=== PATIENT | male | born 1960 | race Caucasian/White ===

== ENCOUNTER → 2016-08-24 | Outpatient (REF) ==
[~2016-08-24] MED LIST: FERR325T3 PO; FOLI5INJ2 SC; GABA600T PO; PROC10TA PO; VITA200016 PO
--- NOTE | 2016-08-25 01:55 | REP ---
Clinical: Pain and disability. Technique: AP, lateral, coned-down views of the lumbosacral spine. Comparison: 04/06/2016. Findings: Advanced and relatively stable multilevel degenerative disc osteophyte complexes are again noted. Findings include osteophytosis, endplate sclerosis/irregularity with disc space narrowing as well as hypertrophic facet changes. Stable retrolisthesis at the L2-3 level of approximately 7 mm is again noted. No acute fracture / compression injury or subluxation. Impression: Advanced multilevel degenerative changes similar to prior examination. No acute fracture / compression injury or subluxation. Signed by Tavares Rosenberg MD 08/25/2016 01:46 A
--- NOTE | 2016-08-25 01:57 | REP ---
Clinical: Pain and disability. Technique: AP view of the pelvis with neutral and frog lateral views of the right and left hip. Findings: Mild symmetric changes to the bilateral hips includes increase sclerosis to the acetabular roof with subtle superior spurring and minimal superior joint space narrowing. No significant periarticular calcifications are appreciated. No evidence for acute or healed fracture. Impression: Mild symmetric arthritic degenerative changes. Signed by Tavares Rosenberg MD 08/25/2016 01:48 A
== END ==
LOC: M SMT 13:59
PROVIDERS: ATTEND Internal Medicine
DX: Z02.71 Encounter for disability determination (principal)

== ENCOUNTER 2017-02-28 22:40 | Emergency (ER) | payer MEDICAID, SELFPAY ==
[~2017-02-28] VITALS: Ht 185.4 cm; Wt 94.0 kg
[2017-02-28 22:40] VITALS: BP 141/87
[2017-02-28] MEDS ORDERED: CYCL5TAB PO (22:48)
[2017-03-01] MEDS ORDERED: NORCOTAB PO
[2017-03-01] MEDS ORDERED: NORCO 5/325MG TABLET (BULK FOR ED) PO ONE
--- NOTE | 2017-03-01 01:24 | REP ---
Clinical: Pain. Technique: AP, lateral, bilateral oblique and sunrise views of the left knee. Findings: Anterior and prepatellar soft tissue swelling is appreciated. Small suprapatellar effusion cannot be excluded. The patella has a bipartite appearance which less likely reflects subacute fracture, but should be correlated clinically. Increase sclerosis to the tibial plateau suggests age-related changes. No osteophytosis or further overt arthritic degenerative changes are appreciated. Impression: Anterior/prepatellar soft tissue swelling. Bipartite patella versus nonacute fracture requires correlation. Signed by Tavares Rosenberg MD 03/01/2017 01:15 A
== END 2017-03-01 00:19 | disposition home or self-care (01) ==
LOC: M ED 22:40
DX: S82.002A Unspecified fracture of left patella, initial encounter for closed fracture (principal); W01.198A Fall on same level from slipping, tripping and stumbling with subsequent striking against other object, initial encounter; Y92.830 Public park as the place of occurrence of the external cause; Y93.89 Activity, other specified; Y99.8 Other external cause status; F17.210 Nicotine dependence, cigarettes, uncomplicated; Z91.041 Radiographic dye allergy status; Z79.899 Other long term (current) drug therapy

== ENCOUNTER → 2018-07-26 | Outpatient (CLI) | payer MEDICARE, MEDICAID ==
[~2018-07-26] MED LIST changes: +CYCL5TAB PO; -GABA600T PO; +GABA600T4 PO; +NORCOTAB PO; -PROC10TA PO; +PROC10TA4 PO
[2018-07-26 13:00] LABS: APPEARANCE, URINE CLEAR (CLEAR); BACTERIA, URINE AUTO NEGATIVE (NEGATIVE); BILIRUBIN, URINE AUTO NEGATIVE (NEGATIVE); BLOOD, URINE BLOOD NEGATIVE (NEGATIVE); COLOR, URINE YELLOW (YELLOW); GLUCOSE, URINE (UA) AUTO NEGATIVE (NEGATIVE); KETONE, URINE AUTO NEGATIVE (NEGATIVE); LEUKOCYTE ESTERASE, URINE AUTO NEGATIVE (NEGATIVE); NITRITE, URINE AUTO NEGATIVE (NEGATIVE); PROTEIN, URINE AUTO NEGATIVE (NEGATIVE); RBC, URINE AUTO 2 /HPF (0-3); SPECIFIC GRAVITY URINE AUTO 1.016 (1.002-1.035); SQUAMOUS EPITHELIAL CELL UR AU 0 /HPF (0-6); UROBILINOGEN, URINE AUTO 0.2 mg/dL (0.0-2.0); WBC, URINE AUTO 0 /HPF (0-3)
[2018-07-26 13:02] LABS: BASO # 0.1 10^3/uL (0.0-0.2); BASO % 0.7 % (0.0-1.0); EOS # 0.2 10^3/uL (0.0-0.50); EOS % 2.6 % (0.0-3.0); HEMATOCRIT 48.9 % (42.0-52.0); HEMOGLOBIN 16.5 g/dl (13.5-17.5); LYMPH # 2.9 10^3/uL (1.5-4.5); LYMPH % 39.8 % (24.0-44.0); MEAN CORPUSCULAR HEMOGLOBIN 31.3 pg (27.0-33.0); MEAN CORPUSCULAR HGB CONC 33.7 g/dl (32.0-36.5); MEAN CORPUSCULAR VOLUME 92.6 fl (80.0-96.0); MONO # 0.8 10^3/uL (0.0-0.8); MONO % 10.7 % (0.0-5.0); NEUTROPHILS # 3.3 10^3/uL (1.8-7.7); NEUTROPHILS % 45.8 % (36.0-66.0); PLATELET COUNT, AUTOMATED 178 10^3/uL (150-450); RED BLOOD COUNT 5.28 10^6/uL (4.30-6.10); WHITE BLOOD COUNT 7.3 10^3/uL (4.0-10.0)
[2018-07-26 13:31] LABS: ALBUMIN 3.5 GM/DL (3.2-5.2); ALT/SGPT 30 U/L (12-78); BILIRUBIN,TOTAL 0.9 MG/DL (0.2-1.0); BLOOD UREA NITROGEN 19 MG/DL (7-18); CALCIUM LEVEL 8.6 MG/DL (8.5-10.1); CARBON DIOXIDE LEVEL 25 MEQ/L (21-32); CHLORIDE LEVEL 107 MEQ/L (98-107); CHOLESTEROL LEVEL 231 MG/DL (<200); CHOLESTEROL RISK RATIO 6.416 (<5); CREATININE FOR GFR 1.09 MG/DL (0.70-1.30); FERRITIN 198 NG/ML (26-388); GLOMERULAR FILTRATION RATE > 60.0 (>56); GLUCOSE, FASTING 90 MG/DL (70-100); HDL CHOLESTEROL 36 MG/DL (>40); IRON (FE) 129 UG/DL (65-175); LDL CHOLESTEROL 160 MG/DL (<100); NON-HDL-C 195 MG/DL; PERCENT SATURATION 53.8 % (19.7-50.0); POTASSIUM SERUM 4.5 MEQ/L (3.5-5.1); SODIUM LEVEL 141 MEQ/L (136-145); TOTAL 25(OH) VITAMIN D 89.3 NG/ML (30.0-100.0); TOTAL IRON BINDING CAPACITY 240 UG/DL (250-450); TOTAL PROTEIN 6.7 GM/DL (6.4-8.2); TRIGLYCERIDES LEVEL 176 MG/DL (<150)
[2018-07-26 13:32] LABS: VITAMIN B12 LEVEL 500 PG/ML (247-911)
[2018-07-26 14:09] LABS: FOLATE 12.9 NG/ML (>5.4)
[2018-08-03 14:14] LABS: HLA-B27 Positive (.); PSA TOTAL 1.4 ng/mL (0.0-4.0)
== END ==
LOC: M WUC 09:18
PROVIDERS: ATTEND Family Medicine
DX: Q07.00 Arnold-Chiari syndrome without spina bifida or hydrocephalus (principal); E55.9 Vitamin D deficiency, unspecified; D52.9 Folate deficiency anemia, unspecified; F17.210 Nicotine dependence, cigarettes, uncomplicated; M51.36 Other intervertebral disc degeneration, lumbar region

== ENCOUNTER → 2018-10-23 | Outpatient (CLI) | payer MEDICARE, MEDICAID ==
[2018-10-23 17:09] LABS: ALBUMIN 3.8 GM/DL (3.2-5.2); ALT/SGPT 41 U/L (12-78); BILIRUBIN,TOTAL 0.6 MG/DL (0.2-1.0); BLOOD UREA NITROGEN 24 MG/DL (7-18); CALCIUM LEVEL 8.4 MG/DL (8.5-10.1); CARBON DIOXIDE LEVEL 28 MEQ/L (21-32); CHLORIDE LEVEL 107 MEQ/L (98-107); CHOLESTEROL LEVEL 190 MG/DL (<200); CHOLESTEROL RISK RATIO 4.318 (<5); CREATININE FOR GFR 0.92 MG/DL (0.70-1.30); GLOMERULAR FILTRATION RATE > 60.0 (>56); GLUCOSE, FASTING 96 MG/DL (70-100); HDL CHOLESTEROL 44 MG/DL (>40); IRON (FE) 81 UG/DL (65-175); LDL CHOLESTEROL 127 MG/DL (<100); NON-HDL-C 146 MG/DL; PERCENT SATURATION 34.6 % (19.7-50.0); POTASSIUM SERUM 4.3 MEQ/L (3.5-5.1); SODIUM LEVEL 140 MEQ/L (136-145); TOTAL IRON BINDING CAPACITY 234 UG/DL (250-450); TOTAL PROTEIN 6.9 GM/DL (6.4-8.2); TRIGLYCERIDES LEVEL 95 MG/DL (<150)
[2018-10-23 17:13] LABS: TOTAL 25(OH) VITAMIN D 81.4 NG/ML (30.0-100.0)
== END ==
LOC: M WUC 10:40
PROVIDERS: ATTEND Family Medicine
DX: E55.9 Vitamin D deficiency, unspecified (principal); E78.5 Hyperlipidemia, unspecified; D64.9 Anemia, unspecified

== ENCOUNTER → 2018-11-08 | Outpatient (REF) | payer MEDICARE, MEDICAID ==
[~2018-11-08] MED LIST changes: +HYDR-3715 PO; -NORCOTAB PO
[2018-11-08 18:21] LABS: HEMATOCRIT 48.5 % (42.0-52.0); HEMOGLOBIN 16.6 g/dl (13.5-17.5); MEAN CORPUSCULAR HEMOGLOBIN 30.7 pg (27.0-33.0); MEAN CORPUSCULAR HGB CONC 34.2 g/dl (32.0-36.5); MEAN CORPUSCULAR VOLUME 89.8 fl (80.0-96.0); PLATELET COUNT, AUTOMATED 215 10^3/uL (150-450)
[2018-11-08 18:31] LABS: ALBUMIN 3.9 GM/DL (3.2-5.2); ALT/SGPT 48 U/L (12-78); BILIRUBIN,DIRECT < 0.1 MG/DL (0.0-0.2); BILIRUBIN,TOTAL 0.5 MG/DL (0.2-1.0); BLOOD UREA NITROGEN 24 MG/DL (7-18); CALCIUM LEVEL 8.6 MG/DL (8.5-10.1); CARBON DIOXIDE LEVEL 24 MEQ/L (21-32); CHLORIDE LEVEL 109 MEQ/L (98-107); GLOMERULAR FILTRATION RATE > 60.0 (>56); GLUCOSE, FASTING 86 MG/DL (70-100); PHOSPHORUS LEVEL 2.6 MG/DL (2.5-4.9); POTASSIUM SERUM 4.3 MEQ/L (3.5-5.1); SODIUM LEVEL 140 MEQ/L (136-145); TOTAL PROTEIN 7.1 GM/DL (6.4-8.2)
== END ==
LOC: M LABDRAW1 17:37 → M LAB REF 17:37
PROVIDERS: ATTEND Podiatrist Foot & Ankle Surgery
DX: B35.1 Tinea unguium (principal); Z79.899 Other long term (current) drug therapy

== ENCOUNTER → 2018-12-18 | Outpatient (CLI) | payer MEDICARE ==
[~2018-12-18] MED LIST changes: +ASPI81TA85 PO; +ATOR40TA75 PO; +FOLI1TAB11 PO; +GABA800T4 PO; +TERB250T12 PO; +VITA50005 PO; +ZONI50CA3 PO
[2018-12-18 16:40] LABS: HEMATOCRIT 47.1 % (42.0-52.0); HEMOGLOBIN 16.3 g/dl (13.5-17.5); MEAN CORPUSCULAR HEMOGLOBIN 30.8 pg (27.0-33.0); MEAN CORPUSCULAR HGB CONC 34.6 g/dl (32.0-36.5); PLATELET COUNT, AUTOMATED 172 10^3/uL (150-450); RED BLOOD COUNT 5.29 10^6/uL (4.30-6.10); WHITE BLOOD COUNT 6.6 10^3/uL (4.0-10.0)
[2018-12-18 16:53] LABS: ALBUMIN 4.1 GM/DL (3.2-5.2); ALT/SGPT 55 U/L (12-78); BILIRUBIN,DIRECT 0.1 MG/DL (0.0-0.2); BILIRUBIN,TOTAL 0.6 MG/DL (0.2-1.0); BLOOD UREA NITROGEN 25 MG/DL (7-18); CALCIUM LEVEL 9.1 MG/DL (8.5-10.1); CARBON DIOXIDE LEVEL 27 MEQ/L (21-32); CHLORIDE LEVEL 110 MEQ/L (98-107); CREATININE FOR GFR 1.04 MG/DL (0.70-1.30); GLOMERULAR FILTRATION RATE > 60.0 (>56); GLUCOSE, FASTING 95 MG/DL (70-100); PHOSPHORUS LEVEL 2.3 MG/DL (2.5-4.9); POTASSIUM SERUM 4.3 MEQ/L (3.5-5.1); SODIUM LEVEL 141 MEQ/L (136-145); TOTAL PROTEIN 7.3 GM/DL (6.4-8.2)
== END ==
LOC: M WUC 13:38
PROVIDERS: ATTEND Podiatrist Foot & Ankle Surgery
DX: B35.1 Tinea unguium (principal); Z79.899 Other long term (current) drug therapy

== ENCOUNTER 2018-12-23 13:11 | Observation (INO) | payer MEDICARE ==
[~2018-12-23] VITALS: Ht 188 cm; Wt 93.7 kg
[~2018-12-23 13:11] MED LIST changes: -ASPI81TA85 PO; -ATOR40TA75 PO; -FOLI1TAB11 PO; -GABA800T4 PO; -TERB250T12 PO; -VITA50005 PO; -ZONI50CA3 PO
[2018-12-23] MEDS ORDERED: ZONI50CA3 PO (13:18)
[2018-12-23] MEDS ORDERED: ATOR40TA75 PO (13:18)
[2018-12-23] MEDS ORDERED: FOLI1TAB11 PO (13:18)
[2018-12-23] MEDS ORDERED: VITA50005 PO (13:18)
[2018-12-23] MEDS ORDERED: TERB250T12 PO (13:18)
[2018-12-23] MEDS ORDERED: NS 1,000 ML IV ONE (14:00)
[2018-12-23 14:12] LABS: BASO # 0.1 10^3/uL (0.0-0.2); EOS # 0.2 10^3/uL (0.0-0.50); EOS % 2.8 % (0.0-3.0); HEMATOCRIT 46.9 % (42.0-52.0); HEMOGLOBIN 16.1 g/dl (13.5-17.5); LYMPH # 1.7 10^3/uL (1.5-4.5); LYMPH % 28.6 % (24.0-44.0); MEAN CORPUSCULAR HEMOGLOBIN 31.1 pg (27.0-33.0); MEAN CORPUSCULAR HGB CONC 34.3 g/dl (32.0-36.5); MEAN CORPUSCULAR VOLUME 90.7 fl (80.0-96.0); MONO # 0.5 10^3/uL (0.0-0.8); MONO % 8.9 % (0.0-5.0); NEUTROPHILS # 3.5 10^3/uL (1.8-7.7); NEUTROPHILS % 58.5 % (36.0-66.0); PLATELET COUNT, AUTOMATED 169 10^3/uL (150-450); RED BLOOD COUNT 5.17 10^6/uL (4.30-6.10)
[2018-12-23 14:37] LABS: ALBUMIN 3.9 GM/DL (3.2-5.2); ALT/SGPT 52 U/L (12-78); BILIRUBIN,TOTAL 0.7 MG/DL (0.2-1.0); BLOOD UREA NITROGEN 18 MG/DL (7-18); CALCIUM LEVEL 8.6 MG/DL (8.5-10.1); CARBON DIOXIDE LEVEL 24 MEQ/L (21-32); CHLORIDE LEVEL 112 MEQ/L (98-107); CREATININE FOR GFR 1.11 MG/DL (0.70-1.30); GLOMERULAR FILTRATION RATE > 60.0 (>56); GLUCOSE, FASTING 96 MG/DL (70-100); POTASSIUM SERUM 4.2 MEQ/L (3.5-5.1); SODIUM LEVEL 143 MEQ/L (136-145); TOTAL PROTEIN 7.5 GM/DL (6.4-8.2)
[2018-12-23 14:51] LABS: D-DIMER QUANT 2059.31 ng/ml (<500)
[2018-12-23] MEDS ORDERED: guaiFENesin DM LIQ 10ML UD PO PRN (16:15)
--- NOTE | 2018-12-23 16:28 | HPEPDOC ---
[facility] Medical History & Physical History and Physical DATE OF ADMISSION 12/23/2018 PCP Chandan in [facility] VERIFICATION MANAGER: Dr. Negron NEUROLOGIST: Dr. Reis CHIEF COMPLAINT: Coughing up blood HISTORY OF PRESENT ILLNESS: Patient is a 58-year-old man who presents with a 2- 1/2 week history of significant cough or last 2 days he has noted progressively increasing hemoptysis approximately half teaspoon per episode. It happens after a large coughing fit and intermittently he has never experienced this before. He denies any other bleeding dark tarry stools easy bruising. He tells me that he has had a significant runny nose for the past week as well. Clear. He tells me that his grandchildren live with them have been sick and they've been having a runny nose and cough for the last 2 weeks also he felt he had the same infection has been. He is a long-time smoker of greater than 30 pack years. He denies any new changes in medications other than starting terbinafine one month ago for onychomycosis. The patient denies fevers chills or otherwise feeling unwell, he denies sore throat he denies night sweats weight loss or changes in appetite Otherwise patient denies hair loss, he has chronic headache, denies visual changes, chest pain, shortness of breath, nausea, vomiting, diarrhea, abdominal pain, muscle aches, worsening arthritis, change in mood PAST MEDICAL HISTORY: 1. Budd-Chiari with chronic headache. 2. Dyslipidemia 3. Onychomycosis. 4. Folic acid and vitamin D deficiency HOME MEDICATIONS: Please see below. ALLERGIES: Please see below PAST SURGICAL HISTORY: 1. Colonoscopy. 2. Left ulnar nerve release.. SOCIAL HISTORY: Lives with: and grandchildren, Employment:. She worked in a [employer] has been on unable to work for several years now, Tobacco use: Active smoker greater than 30 pack years. ETOH: Does not drink cannot remember his last drink, Illicit drug use: Denies , Tattoos done unprofessionally: Denies. IV drug use: Denies CODE STATUS: Full code FAMILY HISTORY:Reviewed and noncontributory REVIEW OF SYSTEMS: 10 systems reviewed and negative other than HPI PHYSICAL EXAMINATION: VITAL SIGNS: Temperature 98.8, pulse 80, respiratory rate 18, blood pressure 136/84, pulse oximetry 95% on room air. GENERAL: Pleasant man accompanied by his sitting on the stretcher sitting up in bed awake alert oriented speaking in complete sentences no acute distress. He does smoke tobacco has numerous tattoos HEENT: Moist mucous membranes no elevation and CVP, no visible perforations of nasal septum, no blood visualized in the oral cavity CARDIOVASCULAR: S1 S2 regular no additional heart sounds appreciated. RESPIRATORY: Clear to auscultation bilaterally. ABDOMINAL: Bowel sounds present abdomen soft and nontender EXTREMITIES: No clubbing cyanosis or edema NEUROLOGICAL: Spontaneously moves all 4 extremities cranial 2 through 12 grossly intact no gross focal deficits appreciated PSYCHOLOGICAL: Appropriate LABORATORY DATA: See below. MICROBIOLOGY: Please see below. IMAGING: CT chest: Report pending Lower extremity duplex: Report pending ASSESSMENT & PLAN: 58-year-old man with hemoptysis . PROBLEMS: 1.Non-massive hemoptysis: The etiology is not clear, he does have positive sick contacts infection is certainly possible that sound like Serratia he does not appear to be grossly septic he is not tachycardic she is not febrile symptomatic complaints are minimal. I will check a [employer] PCR panel and await the report of his CT chest without contrast. He does have a significant tobacco history and chronic bronchitis and malignancy are currently on the differential as well. He doesn't have a significantly elevated d-dimer and as such there is concern for pulmonary embolism, as such I will to the observation status to complete a VQ scan tomorrow. However he is not hypoxic is not tachycardic and as such I will hold off on any anticoagulation until we have confirmed the diagnosis as this may be ruptured small blood vessel secondary to aggressive coughing for the last 2 weeks related to some other process. Should his work to be negative and symptoms persist could consider outpatient bronchoscopy. We'll check a UA. 2.Dyslipidemia: Continue with atorvastatin 3. Onychomycosis: Continue with terbinafine 4. Tobacco abuse: Cessation counseling provided 5. Vitamin deficiencies: Continue with vitamin D2 and folic acid supplementation DVT PROPHYLAXIS:Sequentials and teds encourage ambulation DISPOSITION: Admitted to observation status in the medical surgical floor Vital Signs Vital Signs Date Time Temp Pulse Resp B/P (MAP) Pulse Ox O2 Delivery O2 Flow Rate FiO2 12/23/18 16:00 98.0 66 18 128/92 (104) 98 Room Air Laboratory Data Labs 24H Laboratory Tests 2 12/23/18 13:53: Immature Granulocyte % (Auto) 0.2, White Blood Count 6.0, Red Blood Count 5.17, Hemoglobin 16.1, Hematocrit 46.9, Mean Corpuscular Volume 90.7, Mean Corpuscular Hemoglobin 31.1, Mean Corpuscular Hemoglobin Concent 34.3, Red Cell Distribution Width 13.4, Platelet Count 169, Neutrophils (%) (Auto) 58.5, Lymphocytes (%) (Auto) 28.6, Monocytes (%) (Auto) 8.9H, Eosinophils (%) (Auto) 2.8, Basophils (%) (Auto) 1.0, Neutrophils # (Auto) 3.5, Lymphocytes # (Auto) 1.7, Monocytes # (Auto) 0.5, Eosinophils # (Auto) 0.2, Basophils # (Auto) 0.1, Nucleated Red Blood Cells % (auto) 0.0, D-Dimer, Quantitative 2059.31H, Anion Gap 7L, Glomerular Filtration Rate > 60.0, Blood Urea Nitrogen 18, Creatinine 1.11, Sodium Level 143, Potassium Level 4.2, Chloride Level 112H, Carbon Dioxide Level 24, Calcium Level 8.6, Aspartate Amino Transf (AST/SGOT) 28, Alanine Aminotransferase (ALT/SGPT) 52, Alkaline Phosphatase 126H, Total Bilirubin 0.7, Total Protein 7.5, Albumin 3.9, Albumin/Globulin Ratio 1.08 CBC/BMP Laboratory Tests 12/23/18 13:53 Red Blood Count 5.17, Mean Corpuscular Volume 90.7, Mean Corpuscular Hemoglobin 31.1, Mean Corpuscular Hemoglobin Concent 34.3, Red Cell Distribution Width 13. 4, Neutrophils (%) (Auto) 58.5, Lymphocytes (%) (Auto) 28.6, Monocytes (%) (Auto) 8.9 H, Eosinophils (%) (Auto) 2.8, Basophils (%) (Auto) 1.0, Neutrophils # (Auto) 3.5, Lymphocytes # (Auto) 1.7, Monocytes # (Auto) 0.5, Eosinophils # (Auto) 0.2, Basophils # (Auto) 0.1, Calcium Level 8.6, Aspartate Amino Transf (AST/SGOT) 28, Alanine Aminotransferase (ALT/SGPT) 52, Alkaline Phosphatase 126 H, Total Bilirubin 0.7, Total Protein 7.5, Albumin 3.9 Home Medications Scheduled Atorvastatin Calcium (Atorvastatin Calcium) 40 Mg Tablet, QHS Ergocalciferol (Vitamin D2) (Vitamin D2) 50,000 Unit Capsule, 50,000 UNIT PO MTHLY Folic Acid (Folic Acid) 1 Mg Tablet, 1 TAB PO DAILY Gabapentin (Gabapentin) 600 Mg Tab, 600 MG PO TID Terbinafine HCl (Terbinafine HCl) 250 Mg Tablet, DAILY Zonisamide (Zonisamide) 50 Mg Capsule, BID Scheduled PRN Cyclobenzaprine HCl (Cyclobenzaprine HCl) 5 Mg Tab, 5 MG PO for BACK PAIN Hydrocodone/Acetaminophen (Hydrocodone-Acetamin 5-325 mg) 1 Tab Tab, 1 TAB PO Q6H PRN for PAIN Miscellaneous Medications Ferrous Sulfate (Ferrous Sulfate) 325 Mg Tab, 325 MG PO Allergies Coded Allergies: Contrast Media (Verified Allergy, Unknown, 07/13/16) A-FIB/CHADSVASC A-FIB History Current/History of A-Fib/PAF?: No LEXX GREGG MD December 23, 2018 16:28
[2018-12-23] MEDS ORDERED: ASPI81TA85 PO (16:36)
[2018-12-23] MEDS ORDERED: GABA800T4 PO (16:37)
[2018-12-23 17:30] VITALS: BP 136/74
[2018-12-23] MEDS: ZONISAMIDE 50 MG CAP (ZONEGRAN) PO SCH (20:20)
[2018-12-23 20:29] LABS: NT-PRO BNP 14 PG/ML (<125); TROPONIN I < 0.02 NG/ML (< 0.10)
[2018-12-23 20:47] LABS: INR 0.94; PROTHROMBIN TIME 12.7 SECONDS (12.1-14.4)
[2018-12-23 22:00] VITALS: BP 138/81
[2018-12-24 06:00] VITALS: BP 122/80
--- NOTE | 2018-12-24 07:10 | REP ---
REASON: Hemoptysis and dyspnea. Patient has intravenous contrast allergy as per history. The lack of intravenous contrast decreases the sensitivity of the exam. The mediastinum and pulmonary teresa are within normal limits although seen in a limited fashion. There are no pleural or pericardial effusion. The imaged upper abdomen and imaged osseous structures are within normal limits. Evaluation of the lung kincaid show emphysematous changes with small parenchymal bulla and tiny pleural blebs particularly in the apices. There is no evidence of a significant abnormal nodule, mass, or opacity. IMPRESSION: Chronic lung field changes as described above. Electronically Signed by Ji Quiros DO 12/24/2018 08:36 A
--- NOTE | 2018-12-24 07:13 | REP ---
REASON: Pain and swelling. TECHNIQUE: Multiple ultrasonographic images of the deep venous structures of the bilateral thighs were obtained from the common femoral vein to the popliteal vein along with Doppler interrogation and color flow Doppler images. FINDINGS: There is no abnormal echogenic material seen within any of the visualized deep venous structures that would suggest acute thrombosis. Coaptation is unremarkable throughout. Doppler interrogation shows an expected response to respiratory variability and augmentation. The color flow images show what appears to be a normal vascular pattern throughout. IMPRESSION: There is no ultrasonographic evidence of deep venous thrombosis involving any of the visualized deep venous structures of the bilateral thighs, as described above. Electronically Signed by Ji Quiros DO 12/24/2018 08:37 A
[2018-12-24 07:33] LABS: HEMATOCRIT 44.8 % (42.0-52.0); HEMOGLOBIN 15.1 g/dl (13.5-17.5); MEAN CORPUSCULAR HEMOGLOBIN 30.8 pg (27.0-33.0); MEAN CORPUSCULAR HGB CONC 33.7 g/dl (32.0-36.5); MEAN CORPUSCULAR VOLUME 91.4 fl (80.0-96.0); PLATELET COUNT, AUTOMATED 168 10^3/uL (150-450); WHITE BLOOD COUNT 6.1 10^3/uL (4.0-10.0)
[2018-12-24 07:55] LABS: BLOOD UREA NITROGEN 15 MG/DL (7-18); CALCIUM LEVEL 8.9 MG/DL (8.5-10.1); CARBON DIOXIDE LEVEL 24 MEQ/L (21-32); CHLORIDE LEVEL 111 MEQ/L (98-107); GLOMERULAR FILTRATION RATE > 60.0 (>56); GLUCOSE, FASTING 113 MG/DL (70-100); POTASSIUM SERUM 3.9 MEQ/L (3.5-5.1); SODIUM LEVEL 141 MEQ/L (136-145)
[2018-12-24] MEDS: ZONISAMIDE 50 MG CAP (ZONEGRAN) PO SCH (08:21)
[2018-12-24 10:06] LABS: APPEARANCE, URINE CLEAR (CLEAR); BACTERIA, URINE AUTO NEGATIVE (NEGATIVE); BILIRUBIN, URINE AUTO NEGATIVE (NEGATIVE); BLOOD, URINE BLOOD NEGATIVE (NEGATIVE); COLOR, URINE YELLOW (YELLOW); GLUCOSE, URINE (UA) AUTO NEGATIVE (NEGATIVE); KETONE, URINE AUTO NEGATIVE (NEGATIVE); LEUKOCYTE ESTERASE, URINE AUTO NEGATIVE (NEGATIVE); NITRITE, URINE AUTO NEGATIVE (NEGATIVE); PROTEIN, URINE AUTO NEGATIVE (NEGATIVE); RBC, URINE AUTO 0 /HPF (0-3); SPECIFIC GRAVITY URINE AUTO 1.008 (1.002-1.035); UROBILINOGEN, URINE AUTO 0.2 mg/dL (0.0-2.0); WBC, URINE AUTO 0 /HPF (0-3)
[2018-12-24 10:07] LABS: MUCUS, URINE SMALL (NEGATIVE); SQUAMOUS EPITHELIAL CELL UR AU 0 /HPF (0-6)
[2018-12-24] MEDS ORDERED: SLF 3 ML SYR IV PRN (11:45)
[2018-12-24 14:00] VITALS: BP 121/82
[2018-12-24] MEDS ORDERED: SLF 3 ML SYR IV SCH (14:00)
--- NOTE | 2018-12-24 15:57 | REP ---
REASON: Dyspnea. COMPARISON: Multiple, latest 06/28/2016. FINDINGS: The superior mediastinal structures are midline. The cardiac silhouette is unremarkable in size, shape, and position. The diaphragmatic surfaces of the lungs are regular, and the costophrenic angles are clear. The pulmonary kincaid are clear. The imaged osseous structures are intact. IMPRESSION: There is no acute cardiopulmonary disease. No change from the prior exam. Electronically Signed by Ji Quiros DO 12/24/2018 04:38 P
--- NOTE | 2018-12-24 16:11 | REP ---
REASON FOR EXAM: Dyspnea on exertion. After the inhalation of 1 millicurie of Technetium 99M DTPA a ventilation lung study was performed. After the intravenous administration of 2.5 millicuries of Technetium 99 M MAA a profusion lung study was performed. There was no evidence of a ventilation profusion mismatch. The profusion study is within normal limits. IMPRESSION:No evidence of a pulmonary embolus. Electronically Signed by Ji Quiros DO 12/24/2018 04:38 P
--- NOTE | 2018-12-24 16:41 | DS.PDOC ---
Discharge Summary General Date of Admission December 23, 2018 at 15:59 Date of Discharge 12/24/18 Attending Physician: LEXX GREGG MD Discharge Summary PROCEDURES PERFORMED DURING STAY: [None]. ADMITTING DIAGNOSES: 1. Hemoptysis 2. Dyslipidemia 3. Onychomycosis 4. Tobacco Abuse DISCHARGE DIAGNOSES: 1. Hemoptysis 2. Dyslipidemia 3. Onychomycosis 4. Tobacco Abuse COMPLICATIONS/CHIEF COMPLAINT: Hemoptysis. HISTORY OF PRESENT ILLNESS: Patient is a 58 year old male with a past medical history significant for Budd-Chiari malformation with chronic headache, dislipidemia, and onychomycosis who presented to the [facility] ER with complaint of blood tinged sputum since Monday12/19/18. Patient had stated that he has been ill with a cough for at least the past 2 1/2 weeks. He stated that on Monday he had noticed blood and quantified it to approximately 1/2 teaspoon per episode . Patient has admitted to being a long time smoker and states he has been smoking 1 pack per day for at least the past 30 years. The patient had denied any other symptoms with exception to a chronic cough. He denied fevers, chills, chest pain, or shortness of breath. He denied ever having any previous episode of hemotpysis before this. The patient presented because he became worried of his symptoms. In the ER the patient was found to be normotensive. He was not tachycardiac. A D-dimer was ordered in the ER which resulted positive. The patient was planned to receive a CT angiogram however, he noted an allergy to contrast dye. The patient was then placed under observation until he cougld receive a V/Q scan HOSPITAL COURSE: During the patients hospital course he did not have any other episodes of hemoptysis. He received a Vascular ultrasound which was negative for DVT. He received a V/Q scan which was negative for pulmonary embolus. He received a chest X-ray which was negative for acute disease. The patients episode of hemoptysis was felt to be secondary to bronchitis related to his s moking. The patient was counseled on smoking cessation and instructed to follow- up with Pulmonary medicine regarding his hemoptysis DISCHARGE MEDICATIONS: Please see below. ALLERGIES: Please see below. PHYSICAL EXAMINATION ON DISCHARGE: VITAL SIGNS: Please see below. GENERAL: Awake, alert, and oriented. Appears in no acute distress. HEENT: Atraumatic, normocephalic. Eyes are nonicteric. Trachea is midline. Dentition is fair. NECK: No palpable cervical chain lymphadenopathy CARDIOVASCULAR EXAMINATION: Normal S1, S2. Regular rate and rhythm. No clicks, rubs, or murmurs. RESPIRATORY EXAMINATION: Clear vesicular breath sounds bilaterally. Increased expiratory phase. Symmetric chest rise. No use of accessory muscles ABDOMINAL EXAMINATION: Soft, nondistended. Nontender to palpation of all 4 quadrants. No rebound tenderness or guarding. Positive bowel sounds throughout EXTREMITIES: No edema. 2+ posterior tibial pulses bilaterally. 2+ radial pulses bilaterally SKIN: No rashes or lesions. No signs of bruising NEUROLOGICAL EXAMINATION: No focal neurological deficits PSYCHIATRIC EXAMINATION: Mood and affect appear appropriate LABORATORY DATA: Please see below. IMAGING: REASON: Pain and swelling. TECHNIQUE: Multiple ultrasonographic images of the deep venous structures of the bilateral thighs were obtained from the common femoral vein to the popliteal vein along with Doppler interrogation and color flow Doppler images. FINDINGS: There is no abnormal echogenic material seen within any of the visualized deep venous structures that would suggest acute thrombosis. Coaptation is unremarkable throughout. Doppler interrogation shows an expected response to respiratory variability and augmentation. The color flow images show what appears to be a normal vascular pattern throughout. IMPRESSION: There is no ultrasonographic evidence of deep venous thrombosis involving any of the visualized deep venous structures of the bilateral thighs, as described above. Electronically Signed by Ji Quiros DO 12/24/2018 08:37 A DD: Ji Quiros MD, DO 12/23/18 [id number] REASON: Hemoptysis and dyspnea. Patient has intravenous contrast allergy as per history. The lack of intravenous contrast decreases the sensitivity of the exam. The mediastinum and pulmonary teresa are within normal limits although seen in a limited fashion. There are no pleural or pericardial effusion. The imaged upper abdomen and imaged osseous structures are within normal limits. Evaluation of the lung kincaid show emphysematous changes with small parenchymal bulla and tiny pleural blebs particularly in the apices. There is no evidence of a significant abnormal nodule, mass, or opacity. IMPRESSION: Chronic lung field changes as described above. Electronically Signed by Ji Quiros DO 12/24/2018 08:36 A REASON FOR EXAM: Dyspnea on exertion. After the inhalation of 1 millicurie of Technetium 99M DTPA a ventilation lung study was performed. After the intravenous administration of 2.5 millicuries of Technetium 99 M MAA a profusion lung study was performed. There was no evidence of a ventilation profusion mismatch. The profusion study is within normal limits. IMPRESSION: No evidence of a pulmonary embolus. REASON: Dyspnea. COMPARISON: Multiple, latest 06/28/2016. FINDINGS: The superior mediastinal structures are midline. The cardiac silhouette is unremarkable in size, shape, and position. The diaphragmatic surfaces of the lungs are regular, and the costophrenic angles are clear. The pulmonary kincaid are clear. The imaged osseous structures are intact. IMPRESSION: There is no acute cardiopulmonary disease. No change from the prior exam. Unreviewed DD: Ji Quiros MD DO 12/24/18 1163 PROGNOSIS: GOOD ACTIVITY: [As tolerated]. DIET: As tolerated DISCHARGE PLAN: Patient is to be discharged home. He is to STOP smoking and using tobacco and nicotine products. He is to follow-up with his primary care provider in 2-4 weeks. He is to follow-up with Pulmonary Medicine for further evaluation of his hemoptysis. DISCHARGE CONDITION: [Stable]. TIME SPENT ON DISCHARGE: Greater than 30 minutes. Vital Signs/I&Os Vital Signs Date Time Temp Pulse Resp B/P (MAP) Pulse Ox O2 Delivery O2 Flow Rate FiO2 12/24/18 14:00 97.3 59 20 121/82 (95) 99 12/23/18 16:00 Room Air I&O- Last 24 Hours up to 6 AM 12/24/18 05:59 Intake Total 1600 ml Output Total 0 ml Balance 1600 ml Laboratory Data Labs 24H Laboratory Tests 2 12/24/18 07:06: Nucleated Red Blood Cells % (auto) 0.0, Anion Gap 6L, Glomerular Filtration Rate > 60.0, Blood Urea Nitrogen 15, Creatinine 1.10, Sodium Level 141, Potassium Level 3.9, Chloride Level 111H, Carbon Dioxide Level 24, Calcium Level 8.9 12/24/18 09:45: Urine Appearance CLEAR, Urine Color YELLOW, Urine pH 6.0, Urine Specific [place] 1.008, Urine Protein NEGATIVE, Urine Glucose (UA) NEGATIVE, Urine Ketones NEGATIVE, Urine Urobilinogen 0.2, Urine Bilirubin NEGATIVE, Urine Leukocyte Esterase NEGATIVE, Urine Blood NEGATIVE, Urine Nitrite NEGATIVE, Urine WBC (Auto) 0, Urine RBC (Auto) 0, Urine Hyaline Casts (Auto) 0, Urine Bacteria (Auto) NEGATIVE, Urine Squamous Epithelial Cells 0, Urine Mucus (Auto) SMALL, Urine Sperm (Auto) CBC/BMP Laboratory Tests 12/24/18 07:06 Red Blood Count 4.90, Mean Corpuscular Volume 91.4, Mean Corpuscular Hemoglobin 30.8, Mean Corpuscular Hemoglobin Concent 33.7, Red Cell Distribution Width 13.6, Calcium Level 8.9 Microbiology Microbiology 12/24/18 Respiratory Virus Panel (PCR) (DAT) - Final, Complete Discharge Medications Scheduled Aspirin (Aspir 81) 81 Mg Tablet.dr, 81 MG PO DAILY, (Reported) Atorvastatin Calcium (Atorvastatin Calcium) 40 Mg Tablet, 40 MG PO QHS, (Reported) Ergocalciferol (Vitamin D2) (Vitamin D2) 50,000 Unit Capsule, 50,000 UNIT PO QMONTH, (Reported) Ferrous Sulfate (Ferrous Sulfate) 325 Mg Tab, 325 MG PO Q2WK, (Reported) Folic Acid (Folic Acid) 1 Mg Tablet, 1 MG PO DAILY, (Reported) Terbinafine HCl (Terbinafine HCl) 250 Mg Tablet, 250 MG PO DAILY, (Reported) Zonisamide (Zonisamide) 50 Mg Capsule, 50 MG PO BID, (Reported) Scheduled PRN Gabapentin (Gabapentin) 800 Mg Tablet, 800 MG PO TID PRN for PAIN, (Reported) Allergies Coded Allergies: Contrast Media (Verified Allergy, Unknown, 07/13/16) GME ATTESTATION GME ATTESTATION My faculty preceptor for this patient encounter was physically present during the encounter and was fully available. All aspects of the patient interview, examination, medical decision making process, and medical care plan development were reviewed and approved by the faculty preceptor. The faculty preceptor is aware and concurs with the plan as stated in the body of this note and will attest to such by his/her cosignature. ATTENDING NOTE I saw and evaluated the patient. I agree with the findings and plan of care as documented in the resident's note. I spent 45 minutes coordinating this patient's discharge. SASHA BILL DO December 24, 2018 16:41 LEXX GREGG MD December 24, 2018 18:08
== END 2018-12-24 17:23 | disposition home or self-care (01) ==
LOC: M ED 13:11 → M ED INP 15:59 → M MSPAV 18:20
PROVIDERS: ADMIT Internal Medicine; ATTEND Internal Medicine
DX: R04.2 Hemoptysis (principal); E78.49 Other hyperlipidemia; B35.1 Tinea unguium; F17.210 Nicotine dependence, cigarettes, uncomplicated; I82.0 Budd-Chiari syndrome; R51 Headache; E55.9 Vitamin D deficiency, unspecified; D52.9 Folate deficiency anemia, unspecified; Z91.041 Radiographic dye allergy status; Z79.899 Other long term (current) drug therapy; Z79.82 Long term (current) use of aspirin
CPT/HCPCS: 36415; 71046; 71250; 78582; 80048; 80053; 81001; 83880; 84484; 85025; 85027; 85379; 85610; 87486; 87581; 87633; 87798; 93970; 96360; 99284; A9540; A9567; G0378

== ENCOUNTER → 2019-02-28 | Outpatient (CLI) | payer MEDICARE, MEDICAID ==
[~2019-02-28] MED LIST changes: +ASPI81TA85 PO; +ATOR40TA75 PO; +FOLI1TAB11 PO; +GABA800T4 PO; +TERB250T12 PO; +VITA50005 PO; +ZONI50CA3 PO
--- NOTE | 2019-03-01 08:29 | REP ---
Clinical: Pain. H L A B-27 positive serum markers. Technique: Neutral and frog lateral views of the right and left hip. Findings: Hip joints are symmetric and demonstrate mild degenerative changes including increase sclerosis along the acetabular roof with minimal joint space narrowing and very early marginal spurring. Impression: Mild symmetric degenerative change. Electronically Signed by Tavares Rosenberg MD 03/01/2019 08:20 A
--- NOTE | 2019-03-01 08:30 | REP ---
Clinical: H L A B-27 positive serum markers Technique: Four total views of the bilateral sacroiliac joints. Findings: The bilateral sacroiliac joints are symmetric and normal for age. The osseous structures are intact. Phleboliths noted in the pelvis. Impression: Normal age-appropriate sacroiliac joints. Electronically Signed by Tavares Rosenberg MD 03/01/2019 08:22 A
== END ==
LOC: M RAD 11:32
PROVIDERS: ATTEND Internal Medicine Rheumatology
DX: M16.0 Bilateral primary osteoarthritis of hip (principal); I87.8 Other specified disorders of veins; Z15.89 Genetic susceptibility to other disease
CPT/HCPCS: 72202; 73502; G0463

== ENCOUNTER → 2020-01-17 | Outpatient (CLI) | payer MEDICARE, MEDICAID ==
[~2020-01-17] MED LIST changes: +ZONI50CA11 PO; -ZONI50CA3 PO
[2020-01-17 08:23] LABS: BASO # 0.1 10^3/uL (0.0-0.2); EOS # 0.2 10^3/uL (0.0-0.5); EOS % 3.1 % (0.0-3.0); HEMATOCRIT 47.8 % (42.0-52.0); HEMOGLOBIN 16.6 g/dl (13.5-17.5); LYMPH # 2.1 10^3/uL (1.5-5.0); LYMPH % 29.7 % (24.0-44.0); MEAN CORPUSCULAR HEMOGLOBIN 31.7 pg (27.0-33.0); MEAN CORPUSCULAR HGB CONC 34.7 g/dl (32.0-36.5); MEAN CORPUSCULAR VOLUME 91.4 fl (80.0-96.0); MONO # 0.7 10^3/uL (0.0-0.8); MONO % 10.1 % (0.0-5.0); NEUTROPHILS % 55.4 % (36.0-66.0); PLATELET COUNT, AUTOMATED 179 10^3/uL (150-450); RED BLOOD COUNT 5.23 10^6/uL (4.30-6.10); WHITE BLOOD COUNT 7.1 10^3/uL (4.0-10.0)
[2020-01-17 08:58] LABS: ALBUMIN 3.5 GM/DL (3.2-5.2); ALT/SGPT 43 U/L (12-78); BILIRUBIN,TOTAL 0.6 MG/DL (0.2-1.0); BLOOD UREA NITROGEN 20 MG/DL (7-18); CALCIUM LEVEL 8.6 MG/DL (8.5-10.1); CARBON DIOXIDE LEVEL 25 MEQ/L (21-32); CHLORIDE LEVEL 112 MEQ/L (98-107); CHOLESTEROL LEVEL 200 MG/DL (<200); CHOLESTEROL RISK RATIO 4.761 (<5); FERRITIN 300 NG/ML (26-388); GLOMERULAR FILTRATION RATE > 60.0 (>56); GLUCOSE, FASTING 96 MG/DL (70-100); HDL CHOLESTEROL 42 MG/DL (>40); IRON (FE) 79 UG/DL (65-175); LDL CHOLESTEROL 122 MG/DL (<100); NON-HDL-C 158 MG/DL; PERCENT SATURATION 32.2 % (19.7-50.0); POTASSIUM SERUM 4.2 MEQ/L (3.5-5.1); SODIUM LEVEL 142 MEQ/L (136-145); TOTAL IRON BINDING CAPACITY 245 UG/DL (250-450); TOTAL PROTEIN 6.8 GM/DL (6.4-8.2); TRIGLYCERIDES LEVEL 182 MG/DL (<150)
[2020-01-17 09:09] LABS: TOTAL 25(OH) VITAMIN D 31.9 NG/ML (30.0-100.0); VITAMIN B12 LEVEL 417 PG/ML (247-911)
[2020-01-17 09:10] LABS: FOLATE 14.5 NG/ML (>5.4)
[2020-01-17 10:55] LABS: APPEARANCE, URINE CLEAR (CLEAR); BACTERIA, URINE AUTO NEGATIVE (NEGATIVE); BILIRUBIN, URINE AUTO NEGATIVE (NEGATIVE); BLOOD, URINE BLOOD NEGATIVE (NEGATIVE); COLOR, URINE YELLOW (YELLOW); GLUCOSE, URINE (UA) AUTO NEGATIVE (NEGATIVE); KETONE, URINE AUTO NEGATIVE (NEGATIVE); LEUKOCYTE ESTERASE, URINE AUTO NEGATIVE (NEGATIVE); MUCUS, URINE SMALL (NEGATIVE); NITRITE, URINE AUTO NEGATIVE (NEGATIVE); PROTEIN, URINE AUTO NEGATIVE (NEGATIVE); RBC, URINE AUTO 2 /HPF (0-3); SQUAMOUS EPITHELIAL CELL UR AU 0 /HPF (0-6); UROBILINOGEN, URINE AUTO 0.2 mg/dL (0.0-2.0); WBC, URINE AUTO 1 /HPF (0-3)
== END ==
LOC: M LAB 07:52
PROVIDERS: ATTEND Family Medicine
DX: E55.9 Vitamin D deficiency, unspecified (principal); D52.9 Folate deficiency anemia, unspecified; E78.5 Hyperlipidemia, unspecified

== ENCOUNTER → 2020-02-19 | Outpatient (CLI) | payer MEDICARE, MEDICAID ==
[~2020-02-19] MED LIST changes: -ASPI81TA85 PO; +ASPI81TA86 PO
--- NOTE | 2020-02-19 13:47 | REP ---
REASON FOR EXAM: Tobacco abuse. Comparison examination is 12/23/2018, a standard but noncontrast enhanced exam. As per the protocol, only lung window views were sent to the read station for interpretation. Once again, there is evidence of emphysematous change particularly in the lung apical regions bilaterally and unchanged. Once again, there is an incidental calcified granuloma in the right upper lobe. There are no new abnormal nodules, masses, or opacities. IMPRESSION: Stable lung RADS category [address] is recommended as per the revised Fleischner Society criteria. Electronically Signed by Ji Quiros DO 02/19/2020 04:08 P
== END ==
LOC: M RAD 09:12
PROVIDERS: ATTEND Internal Medicine Pulmonary Disease
DX: Z87.891 Personal history of nicotine dependence (principal)

== ENCOUNTER → 2020-05-06 | Outpatient (CLI) | payer MEDICARE, MEDICAID ==
[2020-05-06 09:06] LABS: APPEARANCE, URINE CLEAR (CLEAR); BACTERIA, URINE AUTO NEGATIVE (NEGATIVE); BILIRUBIN, URINE AUTO NEGATIVE (NEGATIVE); BLOOD, URINE BLOOD NEGATIVE (NEGATIVE); COLOR, URINE YELLOW (YELLOW); GLUCOSE, URINE (UA) AUTO NEGATIVE (NEGATIVE); KETONE, URINE AUTO NEGATIVE (NEGATIVE); LEUKOCYTE ESTERASE, URINE AUTO NEGATIVE (NEGATIVE); MUCUS, URINE SMALL (NEGATIVE); NITRITE, URINE AUTO NEGATIVE (NEGATIVE); PROTEIN, URINE AUTO NEGATIVE (NEGATIVE); RBC, URINE AUTO 0 /HPF (0-3); SQUAMOUS EPITHELIAL CELL UR AU 0 /HPF (0-6); UROBILINOGEN, URINE AUTO 0.2 mg/dL (0.0-2.0); WBC, URINE AUTO 1 /HPF (0-3)
[2020-05-06 09:09] LABS: BASO # 0.1 10^3/uL (0.0-0.2); BASO % 0.6 % (0.0-1.0); EOS # 0.2 10^3/uL (0.0-0.5); EOS % 2.2 % (0.0-3.0); HEMOGLOBIN 16.8 g/dl (13.5-17.5); LYMPH # 1.9 10^3/uL (1.5-5.0); LYMPH % 24.5 % (24.0-44.0); MEAN CORPUSCULAR HEMOGLOBIN 31.3 pg (27.0-33.0); MEAN CORPUSCULAR HGB CONC 34.3 g/dl (32.0-36.5); MEAN CORPUSCULAR VOLUME 91.2 fl (80.0-96.0); MONO # 0.8 10^3/uL (0.0-0.8); MONO % 10.6 % (0.0-5.0); NEUTROPHILS # 4.7 10^3/uL (1.5-8.5); NEUTROPHILS % 61.5 % (36.0-66.0); PLATELET COUNT, AUTOMATED 172 10^3/uL (150-450); RED BLOOD COUNT 5.37 10^6/uL (4.30-6.10); WHITE BLOOD COUNT 7.7 10^3/uL (4.0-10.0)
[2020-05-06 09:29] LABS: ALBUMIN 3.8 GM/DL (3.2-5.2); ALT/SGPT 43 U/L (12-78); BILIRUBIN,TOTAL 0.8 MG/DL (0.2-1.0); BLOOD UREA NITROGEN 22 MG/DL (7-18); CALCIUM LEVEL 8.8 MG/DL (8.5-10.1); CARBON DIOXIDE LEVEL 26 MEQ/L (21-32); CHLORIDE LEVEL 110 MEQ/L (98-107); CHOLESTEROL LEVEL 246 MG/DL (<200); CHOLESTEROL RISK RATIO 5.347 (<5); FERRITIN 334 NG/ML (26-388); GLOMERULAR FILTRATION RATE > 60.0 (>56); GLUCOSE, FASTING 96 MG/DL (70-100); HDL CHOLESTEROL 46 MG/DL (>40); IRON (FE) 79 UG/DL (65-175); LDL CHOLESTEROL 165 MG/DL (<100); NON-HDL-C 200 MG/DL; POTASSIUM SERUM 4.3 MEQ/L (3.5-5.1); SODIUM LEVEL 140 MEQ/L (136-145); TOTAL PROTEIN 7.1 GM/DL (6.4-8.2); TRIGLYCERIDES LEVEL 177 MG/DL (<150)
[2020-05-06 12:36] LABS: TOTAL 25(OH) VITAMIN D 36.1 NG/ML (30.0-100.0); VITAMIN B12 LEVEL 359 PG/ML
[2020-05-06 12:38] LABS: FOLATE 10.9 NG/ML
[2020-05-07 23:07] LABS: PSA TOTAL 1.5 ng/mL (0.0-4.0)
== END ==
LOC: M LAB 07:59
PROVIDERS: ATTEND Family Medicine
DX: Z00.00 Encounter for general adult medical examination without abnormal findings (principal); E55.9 Vitamin D deficiency, unspecified; D52.9 Folate deficiency anemia, unspecified; E78.5 Hyperlipidemia, unspecified; Z79.899 Other long term (current) drug therapy; R97.20 Elevated prostate specific antigen [PSA]

== ENCOUNTER → 2020-07-14 | Outpatient (CLI) | payer SELFPAY | LOC: M LABSMTC 15:15 | PROVIDERS: ATTEND Pediatrics | DX: Z11.59 Encounter for screening for other viral diseases (principal) ==

== ENCOUNTER → 2021-03-08 | Outpatient (CLI) | payer MEDICARE, MEDICAID ==
--- NOTE | 2021-03-08 17:18 | REP ---
INDICATION: LUNG SCREENING. COMPARISON: Multiple the latest 02/19/2020 TECHNIQUE: Axial noncontrast images from the thoracic inlet to the upper abdomen using low-dose lung screening technique (LDCT). As per the protocol only lung window images were sent to the read station for interpretation FINDINGS: There is mild lung field hyperexpansion and cylindrical bronchiectasis status quo. There is an incidental right upper lobe calcified granulomas status quo. Small peripheral stable cystic air spaces are seen in the apical regions bilaterally. There are no new abnormal nodules, masses, or opacities. Grossly, the mediastinum and pulmonary teresa are stable. Grossly, the imaged upper abdomen and imaged osseous structures are stable. IMPRESSION: Stable lung rads category 2 low-dose screening CT examination of the lungs. <Electronically signed by Ji Quiros > 03/08/21 [id number]
== END ==
LOC: M RAD 15:11
PROVIDERS: ATTEND Internal Medicine Pulmonary Disease
DX: F17.218 Nicotine dependence, cigarettes, with other nicotine-induced disorders (principal)

== ENCOUNTER → 2022-02-11 | Outpatient (REF) | payer MEDICARE, MEDICAID ==
[~2022-02-11] MED LIST changes: -PROC10TA4 PO; +PROC10TA5 PO; -TERB250T12 PO; +TERB250T91 PO
[2022-02-11 13:05] LABS: ALBUMIN 3.8 GM/DL (3.2-5.2); ALT/SGPT 33 U/L (12-78); BILIRUBIN,TOTAL 0.7 MG/DL (0.2-1.0); BLOOD UREA NITROGEN 20 MG/DL (7-18); CALCIUM LEVEL 8.9 MG/DL (8.8-10.2); CARBON DIOXIDE LEVEL 23 MEQ/L (21-32); CHLORIDE LEVEL 112 MEQ/L (98-107); CHOLESTEROL LEVEL 244 MG/DL (<200); CHOLESTEROL RISK RATIO 5.083 (<5); CREATININE FOR GFR 0.95 MG/DL (0.70-1.30); GLOMERULAR FILTRATION RATE > 60.0 (>49); GLUCOSE, FASTING 103 MG/DL (70-100); HDL CHOLESTEROL 48 MG/DL (>40); LDL CHOLESTEROL 167 MG/DL (<100); NON-HDL-C 196 MG/DL; POTASSIUM SERUM 4.1 MEQ/L (3.5-5.1); SODIUM LEVEL 142 MEQ/L (136-145); TOTAL PROTEIN 6.9 GM/DL (6.4-8.2); TRIGLYCERIDES LEVEL 147 MG/DL (<150)
== END ==
LOC: M LABWUC 12:09
PROVIDERS: ATTEND Family Medicine
DX: E78.5 Hyperlipidemia, unspecified (principal)

== ENCOUNTER → 2022-04-08 | Outpatient (CLI) | payer MEDICARE, MEDICAID | LOC: M RAD 10:43 | PROVIDERS: ATTEND Internal Medicine Pulmonary Disease | DX: J43.9 Emphysema, unspecified (principal); F17.218 Nicotine dependence, cigarettes, with other nicotine-induced disorders ==

== ENCOUNTER → 2022-06-13 | Outpatient (CLI) | payer MEDICARE, MEDICAID ==
[2022-06-13 12:23] LABS: ALBUMIN 3.7 GM/DL (3.2-5.2); ALT/SGPT 30 U/L (12-78); BILIRUBIN,TOTAL 0.5 MG/DL (0.2-1.0); BLOOD UREA NITROGEN 24 MG/DL (7-18); CALCIUM LEVEL 9.3 MG/DL (8.8-10.2); CARBON DIOXIDE LEVEL 25 MEQ/L (21-32); CHLORIDE LEVEL 108 MEQ/L (98-107); CHOLESTEROL LEVEL 225 MG/DL (<200); CREATININE FOR GFR 1.01 MG/DL (0.70-1.30); GLOMERULAR FILTRATION RATE > 60.0 (>49); GLUCOSE, FASTING 91 MG/DL (70-100); HDL CHOLESTEROL 50 MG/DL (>40); LDL CHOLESTEROL 149 MG/DL (<100); NON-HDL-C 175 MG/DL; POTASSIUM SERUM 4.3 MEQ/L (3.5-5.1); SODIUM LEVEL 139 MEQ/L (136-145); TRIGLYCERIDES LEVEL 128 MG/DL (<150)
== END ==
LOC: M WUC 08:35
PROVIDERS: ATTEND Family Medicine
DX: E78.5 Hyperlipidemia, unspecified (principal)

== ENCOUNTER 2023-02-15 10:41 | Day surgery (SDC) | payer MEDICARE, MEDICAID ==
[~2023-02-15] VITALS: Ht 188 cm; Wt 90.3 kg
[~2023-02-15 10:41] MED LIST changes: +ALBU8.5H INH; +BSS IRRIG/VANCO(10MG)/TOBRA(5MG)/EPINEPH(1:1000-0.5CC)500ML BAG-ORONLY IR ONE; +CEFUROXIME 1MG/0.1ML INTRACAMERAL INJ As Ordered ONE; +CYCLOPENTOLATE 1% OPHTH SOLN 2ML BTL OS SCH; +LIDOCAINE 1% SDV 5ML VIAL As Ordered ONE; +LIDOCAINE 3.5 % 1ML OPHTH TOPICAL GEL OU ONE; +OFLOXACIN 0.3 % (OCUFLOX) OPTH SOL 5ML OS ONE; +PHENYLEPHRINE 10% OPHTH SOL 5ML OS PRN; +PHENYLEPHRINE 2.5% OPHTH SOL 2ML OS SCH; +ROSU20TA61 PO; +TROPICAMIDE 1% OPHTH SOLN 15ML OS SCH; +VITA500045 PO; +ZONI100C67 PO
[2023-02-15] MEDS ORDERED: fentaNYL 100 MCG/2 ML INJECTION As Ordered ONE (10:58)
[2023-02-15] MEDS ORDERED: MIDAZOLAM INJ 2MG/2ML VIAL As Ordered ONE (10:59)
[2023-02-15 13:15] VITALS: BP 127/84; TEMP 96.8; O2SAT 99
== END 2023-02-15 13:20 | disposition home or self-care (01) ==
LOC: M SDC 10:41
PROVIDERS: ATTEND Ophthalmology
DX: H25.12 Age-related nuclear cataract, left eye (principal); E78.00 Pure hypercholesterolemia, unspecified; R06.02 Shortness of breath; Q07.00 Arnold-Chiari syndrome without spina bifida or hydrocephalus; M19.90 Unspecified osteoarthritis, unspecified site; Z91.041 Radiographic dye allergy status; Z79.51 Long term (current) use of inhaled steroids; F17.200 Nicotine dependence, unspecified, uncomplicated
CPT/HCPCS: 66984; J0697; J2250; J3010; V2632

== ENCOUNTER 2023-03-01 09:09 | Day surgery (SDC) | payer MEDICARE, MEDICAID ==
[~2023-03-01] VITALS: Ht 188 cm; Wt 89.4 kg
[~2023-03-01 09:09] MED LIST changes: -CYCLOPENTOLATE 1% OPHTH SOLN 2ML BTL OS SCH; +MIDAZOLAM INJ 2MG/2ML VIAL As Ordered ONE; +OFLOXACIN 0.3 % (OCUFLOX) OPTH SOL 5ML OD ONE; -OFLOXACIN 0.3 % (OCUFLOX) OPTH SOL 5ML OS ONE; +PHENYLEPHRINE 10% OPHTH SOL 5ML OD PRN; -PHENYLEPHRINE 10% OPHTH SOL 5ML OS PRN; -PHENYLEPHRINE 2.5% OPHTH SOL 2ML OS SCH; -TROPICAMIDE 1% OPHTH SOLN 15ML OS SCH
[2023-03-01] MEDS: PHENYLEPHRINE 2.5% OPHTH SOL 2ML OD SCH ×2 (10:59→11:00)
[2023-03-01] MEDS: TROPICAMIDE 1% OPHTH SOLN 15ML OD SCH ×2 (10:59→11:00)
[2023-03-01] MEDS: CYCLOPENTOLATE 1% OPHTH SOLN 2ML BTL OD SCH (11:00)
[2023-03-01 12:09] VITALS: BP 165/90; TEMP 97.4; O2SAT 96
== END 2023-03-01 12:26 | disposition home or self-care (01) ==
LOC: M SDC 09:09
PROVIDERS: ATTEND Ophthalmology
DX: H25.11 Age-related nuclear cataract, right eye (principal); I10 Essential (primary) hypertension; E78.5 Hyperlipidemia, unspecified; F17.200 Nicotine dependence, unspecified, uncomplicated; Z79.52 Long term (current) use of systemic steroids; Z79.810 Long term (current) use of selective estrogen receptor modulators (SERMs); Z79.899 Other long term (current) drug therapy; Z91.041 Radiographic dye allergy status
CPT/HCPCS: 66984; J0697; J2250; V2632

== ENCOUNTER → 2023-05-10 | Outpatient (CLI) | payer MEDICARE, OTHER ==
[~2023-05-10] MED LIST changes: -BSS IRRIG/VANCO(10MG)/TOBRA(5MG)/EPINEPH(1:1000-0.5CC)500ML BAG-ORONLY IR ONE; -CEFUROXIME 1MG/0.1ML INTRACAMERAL INJ As Ordered ONE; -LIDOCAINE 1% SDV 5ML VIAL As Ordered ONE; -LIDOCAINE 3.5 % 1ML OPHTH TOPICAL GEL OU ONE; -MIDAZOLAM INJ 2MG/2ML VIAL As Ordered ONE; -OFLOXACIN 0.3 % (OCUFLOX) OPTH SOL 5ML OD ONE; -PHENYLEPHRINE 10% OPHTH SOL 5ML OD PRN
== END ==
LOC: M RAD 08:35
PROVIDERS: ATTEND Internal Medicine Critical Care Medicine
DX: Z12.2 Encounter for screening for malignant neoplasm of respiratory organs (principal); F17.218 Nicotine dependence, cigarettes, with other nicotine-induced disorders

== ENCOUNTER → 2023-10-13 | Outpatient (CLI) | payer MEDICARE, OTHER, MEDICAID ==
[2023-10-13 11:52] LABS: BASO # 0.1 10^3/uL (0.0-0.2); BASO % 0.7 % (0.0-1.0); EOS # 0.2 10^3/uL (0.0-0.5); EOS % 2.6 % (0.0-3.0); HEMATOCRIT 47.9 % (42.0-52.0); HEMOGLOBIN 16.5 g/dl (13.5-17.5); LYMPH # 2.4 10^3/uL (1.5-5.0); LYMPH % 32.9 % (24.0-44.0); MEAN CORPUSCULAR HEMOGLOBIN 31.9 pg (27.0-33.0); MEAN CORPUSCULAR HGB CONC 34.4 g/dl (32.0-36.5); MEAN CORPUSCULAR VOLUME 92.6 fl (80.0-96.0); MONO # 0.8 10^3/uL (0.0-0.8); MONO % 11.4 % (2.0-8.0); NEUTROPHILS # 3.8 10^3/uL (1.5-8.5); PLATELET COUNT, AUTOMATED 182 10^3/uL (150-450); RED BLOOD COUNT 5.17 10^6/uL (4.30-6.10); WHITE BLOOD COUNT 7.3 10^3/uL (4.0-10.0)
[2023-10-13 12:14] LABS: THYROID STIMULATING HORMONE 2.549 uIU/ML (0.55-4.78)
[2023-10-13 12:17] LABS: FOLATE 23.28 NG/ML (>5.4); IRON (FE) 87 UG/DL (65-175); TOTAL 25(OH) VITAMIN D 33.6 NG/ML (20.0-100.0)
[2023-10-13 12:18] LABS: ALBUMIN 3.6 G/DL (3.2-5.2); ALKALINE PHOSPHATASE 100 U/L (46-116); ALT/SGPT 24 U/L (7.0-40); AST/SGOT 19 U/L (<34); BILIRUBIN,TOTAL 0.7 MG/DL (0.3-1.2); BLOOD UREA NITROGEN 17 MG/DL (9-23); CALCIUM LEVEL 8.6 MG/DL (8.3-10.6); CARBON DIOXIDE LEVEL 26 MMOL/L (20-31); CHLORIDE LEVEL 112 MMOL/L (98-107); CHOLESTEROL LEVEL 210 MG/DL (<200); CHOLESTEROL RISK RATIO 4.91 (<5); CREATININE FOR GFR 0.97 MG/DL (0.70-1.30); GLOMERULAR FILTRATION RATE > 60.0 (>49); GLUCOSE, FASTING 99 MG/DL (74-106); HDL CHOLESTEROL 42.7 MG/DL (>40); LDL CHOLESTEROL 144.7 MG/DL (<100); NON-HDL-C 167.3 MG/DL; POTASSIUM SERUM 4.3 MMOL/L (3.5-5.1); SODIUM LEVEL 140 MMOL/L (136-145); TOTAL PROTEIN 6.5 G/DL (5.7-8.2); TRIGLYCERIDES LEVEL 113 MG/DL (<150)
[2023-10-15 08:24] LABS: PSA TOTAL 1.3 ng/mL (0.0-4.0)
== END ==
LOC: M WUC 10:01
PROVIDERS: ATTEND Family Medicine
DX: E78.5 Hyperlipidemia, unspecified (principal); E55.9 Vitamin D deficiency, unspecified; Q07.00 Arnold-Chiari syndrome without spina bifida or hydrocephalus; D52.9 Folate deficiency anemia, unspecified; Z00.00 Encounter for general adult medical examination without abnormal findings

== ENCOUNTER → 2024-07-03 | Outpatient (CLI) | payer MEDICARE, MEDICAID ==
[~2024-07-03] MED LIST changes: -CYCL5TAB PO; +CYCL5TAB4 PO; +GABA-1490 PO; +GABA-1635 PO; -GABA600T4 PO; -GABA800T4 PO; -ROSU20TA61 PO; +ROSU20TA86 PO
== END ==
LOC: M RAD 09:24
PROVIDERS: ATTEND Internal Medicine Critical Care Medicine
DX: Z12.2 Encounter for screening for malignant neoplasm of respiratory organs (principal); F17.218 Nicotine dependence, cigarettes, with other nicotine-induced disorders

== ENCOUNTER → 2024-11-07 | Outpatient (CLI) | payer MEDICARE, MEDICAID ==
[2024-11-07 14:03] LABS: ALBUMIN 3.7 G/DL (3.2-5.2); ALKALINE PHOSPHATASE 114 U/L (40-129); ALT/SGPT 41 U/L (7.0-40); AST/SGOT 27 U/L (<34); BILIRUBIN,TOTAL 0.5 MG/DL (0.3-1.2); BLOOD UREA NITROGEN 16 MG/DL (9-23); CALCIUM LEVEL 8.9 MG/DL (8.3-10.6); CARBON DIOXIDE LEVEL 28 MMOL/L (20-31); CHLORIDE LEVEL 107 MMOL/L (98-107); CHOLESTEROL LEVEL 218 MG/DL (<200); CHOLESTEROL RISK RATIO 4.39 (<5); CREATININE FOR GFR 0.95 MG/DL (0.70-1.30); GLOMERULAR FILTRATION RATE > 60.0 (>49); GLUCOSE, FASTING 110 MG/DL (74-106); HDL CHOLESTEROL 49.6 MG/DL (>40); IRON (FE) 90 UG/DL (65-175); LDL CHOLESTEROL 138.8 MG/DL (<100); NON-HDL-C 168.4 MG/DL; POTASSIUM SERUM 4.5 MMOL/L (3.5-5.1); SODIUM LEVEL 141 MMOL/L (136-145); TOTAL PROTEIN 6.9 G/DL (5.7-8.2); TRIGLYCERIDES LEVEL 148 MG/DL (<150)
[2024-11-07 14:05] LABS: FERRITIN 317.2 NG/ML (10.5-307.3)
[2024-11-07 14:06] LABS: TOTAL 25(OH) VITAMIN D 37.8 NG/ML (20.0-100.0)
[2024-11-07 15:18] LABS: BASO # 0.1 10^3/uL (0.0-0.2); EOS # 0.3 10^3/uL (0.0-0.5); EOS % 2.8 % (0.0-3.0); HEMATOCRIT 47.4 % (42.0-52.0); HEMOGLOBIN 15.9 g/dl (13.5-17.5); LYMPH # 2.3 10^3/uL (1.5-5.0); LYMPH % 25.9 % (24.0-44.0); MEAN CORPUSCULAR HEMOGLOBIN 31.5 pg (27.0-33.0); MEAN CORPUSCULAR HGB CONC 33.5 g/dl (32.0-36.5); MEAN CORPUSCULAR VOLUME 93.9 fl (80.0-96.0); MONO # 0.9 10^3/uL (0.0-0.8); MONO % 9.7 % (2.0-8.0); NEUTROPHILS # 5.3 10^3/uL (1.5-8.5); PLATELET COUNT, AUTOMATED 191 10^3/uL (150-450); RED BLOOD COUNT 5.05 10^6/uL (4.30-6.10); WHITE BLOOD COUNT 8.8 10^3/uL (4.0-10.0)
== END ==
LOC: M WUC 08:32
PROVIDERS: ATTEND Family Medicine
DX: E78.5 Hyperlipidemia, unspecified (principal); D64.9 Anemia, unspecified; D52.9 Folate deficiency anemia, unspecified; E55.9 Vitamin D deficiency, unspecified; Q07.00 Arnold-Chiari syndrome without spina bifida or hydrocephalus

== ENCOUNTER → 2025-03-14 | Outpatient (CLI) | payer MEDICARE, MEDICAID ==
[2025-03-14 12:04] LABS: BASO # 0.0 10^3/uL (0.0-0.2); BASO % 0.6 % (0.0-1.0); EOS # 0.4 10^3/uL (0.0-0.5); EOS % 5.8 % (0.0-3.0); LYMPH # 2.1 10^3/uL (1.5-5.0); LYMPH % 31.7 % (24.0-44.0); MONO # 0.6 10^3/uL (0.0-0.8); MONO % 9.6 % (2.0-8.0); NEUTROPHILS # 3.4 10^3/uL (1.5-8.5); NEUTROPHILS % 51.8 % (36.0-66.0); PLATELET COUNT, AUTOMATED 175 10^3/uL (150-450)
[2025-03-14 14:14] LABS: ALT/SGPT 26.0 U/L (7.0-40); AST/SGOT 25.0 U/L (<34); CALCIUM LEVEL 9.1 MG/DL (8.3-10.6); CARBON DIOXIDE LEVEL 23.0 MMOL/L (20-31); CHLORIDE LEVEL 108.0 MMOL/L (98-107); CHOLESTEROL LEVEL 192.0 MG/DL (<200); CHOLESTEROL RISK RATIO 4.07 (<5); CREATININE FOR GFR 0.98 MG/DL (0.70-1.30); GLOMERULAR FILTRATION RATE 86.7 (>49); LDL CHOLESTEROL 118.1 MG/DL (<100); NON-HDL-C 144.9 MG/DL; POTASSIUM SERUM 4.1 MMOL/L (3.5-5.1); SODIUM LEVEL 141.0 MMOL/L (136-145); TOTAL 25(OH) VITAMIN D 49.2 NG/ML (20.0-100.0); TRIGLYCERIDES LEVEL 134.0 MG/DL (<150)
[2025-03-14 14:56] LABS: ESTIMATED AVERAGE GLUCOSE 111.0 MG/DL (60-110)
== END ==
LOC: M WUC 09:03
PROVIDERS: ATTEND Family Medicine
DX: E78.5 Hyperlipidemia, unspecified (principal); D52.9 Folate deficiency anemia, unspecified; R73.9 Hyperglycemia, unspecified; F17.210 Nicotine dependence, cigarettes, uncomplicated; Z79.899 Other long term (current) drug therapy